=== PATIENT | female | born 1985 | race Hispanic/Latino ===

== ENCOUNTER 2019-01-06 21:04 | Emergency (ER) | payer OTHER ==
[~2019-01-06] VITALS: Ht 167.6 cm; Wt 89.4 kg
[2019-01-06] MEDS ORDERED: SODIUM CHLORIDE 0.9% 50ML 50 ML ONE (23:03)
[2019-01-06] MEDS ORDERED: IOPAMIDOL 370 MG/ML 200 ML INFUS..BTL INJ ONE (23:04)
--- NOTE | 2019-01-06 23:55 | Diagnostic Imaging Report ---
EXAM: CT of the abdomen and pelvis WITH contrast HISTORY: Right flank pain, radiates to right lower quadrant COMPARISON: None available. TECHNIQUE: The abdomen and pelvis were scanned utilizing a multidetector helical scanner. Coronal and sagittal reformats are provided. PROTOCOL: Routine IV CONTRAST: 100 cc of Isovue-370. ORAL CONTRAST: None, which limits sensitivity and specificity of the exam. RADIATION DOSE: Total DLP: ... mGy*cm Estimated effective dose: (DLP x 0.015 x size factor) Dose modulation, iterative reconstruction, and/or weight based adjustment of the mA/kV was utilized to reduce the radiation dose to as low as reasonably achievable. COMPLICATIONS: None FINDINGS: LOWER THORAX: A 3 mm pulmonary nodule within the right middle lobe (series 2 image 12), in this age group statistically most likely an incidental benign nodule, perhaps a granuloma. HEPATOBILIARY: Diffusely decreased attenuation relative to the spleen. No mass. No biliary dilation. No calcified gallstone. SPLEEN: No splenomegaly. PANCREAS: No focal masses or ductal dilatation. ADRENALS: No discrete adrenal nodule. KIDNEYS/URETERS: No hydronephrosis, stones, or definite solid mass lesions. A too small to characterize partially exophytic hypodensity from near the superior pole of the left kidney, statistically most likely a small cyst. PELVIC ORGANS/BLADDER: The uterus is retroflexed. GI TRACT: No dilation or wall thickening identified. The appendix is normal. PERITONEUM / RETROPERITONEUM: Trace free fluid within the pelvis, likely physiologic. LYMPH NODES: No pathologically enlarged lymph node. VESSELS: Unremarkable. BONES: No aggressive osseous lesion or acute fracture. SOFT TISSUES: Unremarkable. IMPRESSION: 1. No acute CT abnormality. 2. Hepatic steatosis. Signed by: Dr. Ministerio Warren D.O., M.M.M. on 01/06/2019 11:51 PM
== END 2019-01-07 00:54 | disposition home or self-care (01) ==
LOC: FSED 21:04
DX: R10.31 Right lower quadrant pain (principal); N30.90 Cystitis, unspecified without hematuria
CPT/HCPCS: 74177; 80053; 81003; 81025; 85025; 99283; Q9967